=== PATIENT | male | born 1975 | race American Indian/Alaskan Native ===

== ENCOUNTER 2017-04-02 15:52 | Emergency (ER) | payer OTHER ==
[2017-04-02 17:06] VITALS: BMI 35.9
[2017-04-02 17:07] VITALS: BP 171/100; PULSE 98; RESP 20; TEMP 99.1; O2SAT 98
--- NOTE | 2017-04-02 19:36 | CT ---
EXAM: CT Head Without Intravenous Contrast EXAM DATE/TIME: Exam ordered 04/02/2017 5:50 PM CLINICAL HISTORY: 41 years old, male; Injury or trauma; Fall; Initial encounter; Concussion / head injury; Additional info: R/O ich and FX TECHNIQUE: Axial computed tomography images of the head/brain without intravenous contrast. All CT scans at this facility use one or more dose reduction techniques, viz.: automated exposure control; ma/kV adjustment per patient size (including targeted exams where dose is matched to indication; i.e. head); or iterative reconstruction technique. COMPARISON: No relevant prior studies available. FINDINGS: Brain: Unremarkable. No hemorrhage. No significant white matter disease. No edema. Ventricles: Unremarkable. No ventriculomegaly. Bones/joints: Unremarkable. No acute fracture. Soft tissues: Unremarkable. Sinuses: Mucosal thickening is noted in the left maxillary sinus. There is also an air-fluid level in the left maxillary sinus. Mucosal thickening extends into the ethmoid air cells bilaterally. Mastoid air cells: Unremarkable as visualized. No mastoid effusion. IMPRESSION: 1. No acute findings. 2. Acute on chronic left maxillary sinusitis. Chronic ethmoid sinusitis
--- NOTE | 2017-04-02 19:45 | C.PDOC ---
History Of Present Illness <Ruslan Hua DO - Last Filed: 04/02/17 19:53> <Jude Martinez - Last Filed: 04/02/17 20:20> 41 y/o male presents to the ER complaining of bilateral wrist and right knee pain which began today. 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 Patient states that he struck the front of his face. Patient denies LOC, chest pain, SOB, abdominal pain, nausea, vomiting, diarrhea, and dizziness. (Billchristiano JEFFERSONRuslan) - HPI History Per: Patient History/Exam Limitations: no limitations Onset/Duration Of Symptoms: Hrs Severity: Moderate <Ruslan Hua DO - Last Filed: 04/02/17 19:53> <Jude Martinez - Last Filed: 04/02/17 20:20> - HPI Chief Complaint (Nursing): Trauma Past Medical History Reviewed: Historical Data, Nursing Documentation, Vital Signs - Medical History PMH: HTN Other Surgeries: Hx of surgeries Family History: States: No Known Family Hx - Social History Hx Alcohol Use: No Hx Substance Use: No - Immunization History Hx Tetanus Toxoid Vaccination: No Hx Influenza Vaccination: No Hx Pneumococcal Vaccination: No <Ruslan Hua DO - Last Filed: 04/02/17 19:53> Vital Signs: Last Vital Signs Temp 99.1 F 04/02/17 17:06 Pulse 98 H 04/02/17 17:06 Resp 20 04/02/17 17:06 BP 171/100 H 04/02/17 17:06 Pulse Ox 98 04/02/17 19:53 Review Of Systems Except As Marked, All Systems Reviewed And Found Negative. Cardiovascular: Negative for: Chest Pain Respiratory: Negative for: Shortness of Breath Gastrointestinal: Negative for: Nausea, Vomiting, Abdominal Pain Musculoskeletal: Positive for: Other (bilateral wrist and right knee pain) Neurological: Negative for: Dizziness <Ruslan Hua DO - Last Filed: 04/02/17 19:53> Physical Exam - Physical Exam Appears: Non-toxic, No Acute Distress Skin: Normal Color, Warm Head: Atraumatic, Normacephalic Eye(s): bilateral: Normal Inspection Nose: Normal Oral Mucosa: Moist Lips: Abrasion (abrasion over upper lip) Neck: Normal ROM, No Midline Cervical Tenderness, Supple Chest: Symmetrical Cardiovascular: Rhythm Regular Respiratory: Normal Breath Sounds, No Accessory Muscle Use, No Rales, No Rhonchi , No Wheezing Gastrointestinal/Abdominal: Normal Exam, Soft, No Tenderness Extremity: Normal ROM Neurological/Psych: Oriented x3, Normal Speech, Normal Motor, Normal Sensation <Ruslan Hua DO - Last Filed: 04/02/17 19:53> ED Course And Treatment O2 Sat by Pulse Oximetry: 98 (RA) Pulse Ox Interpretation: Normal - CT Scan/US Orbit CT Other Rad Studies (CT/US): Read By Radiologist CT/US Interpretation: CLINICAL HISTORY: 41 years old, male; Injury or trauma; Fall; Initial encounter; Abrasion;. Forehead and nose and orbit/periorbital; Bilateral; Additional info: R/O FX. . TECHNIQUE: Axial computed tomography images of the orbits without intravenous contrast. All CT scans at this facility use one or more dose reduction techniques, viz.: automated exposure control; ma/kV adjustment per patient size (including. targeted exams where dose is matched to indication; i.e. head); or iterative. reconstruction technique. Coronal and sagittal reformatted images were created and reviewed. . COMPARISON: No relevant prior studies available. . FINDINGS: Orbits: Unremarkable. Sinuses: Mucosal thickening is seen in the floor of the right maxillary. sinus. There is mucosal thickening in the left maxillary sinus with an. air-fluid level. Mucosal thickening extends into the ethmoid air cells. bilaterally and into the floor of the left frontal sinus. Calcifications are. noted in the lingual tonsils. There is a bilateral vanessa bullosa. Bones/joints : No acute fracture. Soft tissues: Unremarkable. . IMPRESSION: 1. No acute findings. . 2. Acute on chronic left maxillary sinusitis. . 3. Chronic sinusitis of the right maxillary sinus, the ethmoid air cells, and. the floor of the left frontal sinus. Head CT Other Rad Studies (CT/US): Read By Radiologist CT/US Interpretation: CLINICAL HISTORY: 41 years old, male; Injury or trauma; Fall; Initial encounter; Concussion /. head injury; Additional info: R/O ich and FX. . TECHNIQUE: Axial computed tomography images of the head/brain without intravenous. contrast. All CT scans at this facility use one or more dose reduction. techniques, viz.: automated exposure control; ma/kV adjustment per patient size. (including targeted exams where dose is matched to indication ; i.e. head); or. iterative reconstruction technique. . COMPARISON: No relevant prior studies available. . FINDINGS: Brain: Unremarkable. No hemorrhage. No significant white matter disease. No edema. Ventricles: Unremarkable. No ventriculomegaly. Bones/joints: Unremarkable. No acute fracture. Soft tissues: Unremarkable. Sinuses: Mucosal thickening is noted in the left maxillary sinus. There is. also an air-fluid level in the left maxillary sinus. Mucosal thickening. extends into the ethmoid air cells bilaterally. Mastoid air cells: Unremarkable as visualized. No mastoid effusion. . IMPRESSION: 1. No acute findings. . 2. Acute on chronic left maxillary sinusitis. Chronic ethmoid sinusitis <Ruslan Hua DO - Last Filed: 04/02/17 19:53> Progress Note: Pt was signed out to me at 7pm by Dr. Hua to f/up CT scan report. <Jude Martinez - Last Filed: 04/02/17 20:20> Disposition <Ruslan Hua DO - Last Filed: 04/02/17 19:53> Counseled Patient/Family Regarding: Studies Performed, Diagnosis, Need For Followup, Rx Given - Disposition Disposition Time: 20:15 <Jude Martinez Last Filed: 04/02/17 20:20> - Disposition Referrals: Silvestre Perry MD [Medical Doctor] - Kwasi Holly MD [Staff Provider] - Disposition: HOME/ ROUTINE Condition: STABLE Additional Instructions: Rest. Elevate. Ice. Follow up with your doctor and with an orthopedic doctor for further evaluation and treatment. Return to the ER if you develop weakness, numbness, vomiting, worsening of symptoms or if you have any other concerns. Prescriptions: Amoxicillin/Clavulanate [Augmentin 875 MG-125 MG] 1 tab PO BID #14 tab Naproxen [Naprosyn] 1 tab PO BID PRN #20 tab PRN Reason: Pain Oxymetazoline 0.05% [Oxymetazoline HCl 30 Ml] 2 sprays NS BID #1 bottle Instructions: Sinusitis (ED), Head Injury (ED), Knee Sprain (ED) Forms: [employer] (Korean) - Clinical Impression Clinical Impression: Sinusitis, Acute head injury, Wrist contusion, Contusion of right knee Critical Care Time - Scribe Statement The provider has reviewed the documentation as recorded by the Scribe <Ruslan Hua DO - Last Filed: 04/02/17 19:53> <Jude Martinez - Last Filed: 04/02/17 20:20> - Scribe Statement Carolyn Blanco (Ruslan Hua DO) Provider Attestation: All medical record entries made by the Scribe were at my direction and personally dictated by me. I have reviewed the chart and agree that the record accurately reflects my personal performance of the history, physical exam, medical decision making, and the department course for this patient. I have also personally directed, reviewed, and agree with the discharge instructions and disposition. (Ruslan Hua DO)
--- NOTE | 2017-04-02 19:46 | CT ---
EXAM: CT Orbits Without Intravenous Contrast EXAM DATE/TIME: Exam ordered 04/02/2017 5:50 PM CLINICAL HISTORY: 41 years old, male; Injury or trauma; Fall; Initial encounter; Abrasion; Forehead and nose and orbit/periorbital; Bilateral; Additional info: R/O FX TECHNIQUE: Axial computed tomography images of the orbits without intravenous contrast. All CT scans at this facility use one or more dose reduction techniques, viz.: automated exposure control; ma/kV adjustment per patient size (including targeted exams where dose is matched to indication; i.e. head); or iterative reconstruction technique. Coronal and sagittal reformatted images were created and reviewed. COMPARISON: No relevant prior studies available. FINDINGS: Orbits: Unremarkable. Sinuses: Mucosal thickening is seen in the floor of the right maxillary sinus. There is mucosal thickening in the left maxillary sinus with an air-fluid level. Mucosal thickening extends into the ethmoid air cells bilaterally and into the floor of the left frontal sinus. Calcifications are noted in the lingual tonsils. There is a bilateral vanessa bullosa. Bones/joints: No acute fracture. Soft tissues: Unremarkable. IMPRESSION: 1. No acute findings. 2. Acute on chronic left maxillary sinusitis. 3. Chronic sinusitis of the right maxillary sinus, the ethmoid air cells, and the floor of the left frontal sinus.
--- NOTE | 2017-04-03 12:37 | RAD ---
PROCEDURE: Right Knee Radiographs. HISTORY: r/o fx COMPARISON: None. FINDINGS: BONES: Medial tibial spine spurring. No fracture. JOINTS: Minimal medial femoral tibial joint space narrowing and mild patellofemoral joint space narrowing -compatible with osteoarthritis. JOINT EFFUSION: Present OTHER FINDINGS: None. IMPRESSION: No fracture. Suprapatellar joint effusion. Minimal - mild arthrosis
--- NOTE | 2017-04-03 12:40 | RAD ---
PROCEDURE: Bilateral Wrists Radiographs. HISTORY: r/o fx COMPARISON: None. FINDINGS: BONES: Right Carpal Bones: Sub cm ossification flex border the dorsal carpus -compatible with triquetrum osseous avulsion injury. Left Carpal Bones: Normal. No fracture or degenerative changes. Right Distal Radius and Ulna: Minimal degenerative changes. No fracture Left Distal Radius and Ulna: Minimal degenerative changes. No fracture JOINT SPACES: Right Wrist: Mild degenerative changes Left Wrist: Mild degenerate changes SOFT TISSUES: Right Wrist: Normal. Left Wrist: Normal. OTHER FINDINGS: None. IMPRESSION: Dorsal right mid carpus triquetral osseous avulsion inferred - for age /chronicity correlate with physical exam
== END 2017-04-02 20:32 | disposition home or self-care (01) ==
LOC: C.ER 15:52 → MERGE 15:52 → C.ER 20:32
DX: S60.211A Contusion of right wrist, initial encounter (principal); S80.01XA Contusion of right knee, initial encounter; S09.90XA Unspecified injury of head, initial encounter; W17.89XA Other fall from one level to another, initial encounter; Y92.89 Other specified places as the place of occurrence of the external cause; Y99.0 Civilian activity done for income or pay; J32.9 Chronic sinusitis, unspecified
CPT/HCPCS: 70450; 70480; 73110; 73562; 96372; 99285; J1885